=== PATIENT | female | born 1975 | race Caucasian/White ===

== ENCOUNTER 2018-09-22 15:30 | Emergency (ER) | payer MEDICAID ==
[~2018-09-22] VITALS: Ht 142.2 cm; Wt 54.6 kg
[~2018-09-22 15:30] MED LIST: ALD250 GTB; PREN1TAB17 PO
[2018-09-22 15:38] VITALS: Ht 142.2 cm; Wt 54.6 kg
[2018-09-22] MEDS ORDERED: BELLADONNA/PHENOBARBITAL TAB PO STA (19:48)
[2018-09-22] MEDS ORDERED: SOD CHLORIDE 0.9% 500 ML IV STA (19:48)
[2018-09-22] MEDS ORDERED: LIDOCAINE/MYLANTA 40 ML BTL PO STA (19:48)
[2018-09-22] MEDS ORDERED: ONDANSETRON 4 MG INJ IV STA ×2 (19:48→21:08)
[2018-09-22] MEDS ORDERED: NICARDipine HCL 30 MG CAPSULE PO ONE (20:00)
--- NOTE | 2018-09-22 20:06 | ERD ---
ER Documentation Chief Complaint Chief Complaint chest pain, increase bp; headache HPI This is a 43-year-old woman triaged as having "chest pain" although she points to epigastrium when describing the pain states it is burning nonradiating and nonexertional. She complains of a headache and elevated blood pressure as well. She denies fevers or chills, no blood per rectum or melena, no chest pain or shortness of breath, no slurred speech, no weakness in her arms or legs. ROS All systems reviewed and are negative except as per history of present illness. Medications Home Meds Active Scripts Ondansetron Hcl* (Zofran*) 4 Mg Tablet, 4 MG PO Q8H PRN for NAUSEA AND/OR VOMITING, #30 TAB Prov:CALI MICHELLE MD 09/22/18 Mag Hydrox/Al Hydrox/Simeth (Maalox Advanced Suspension) 355 Ml Oral.susp, 2 TSP PO TID PRN for PAIN, #16 OZ Prov:CALI MICHELLE MD 09/22/18 Famotidine* (Pepcid*) 20 Mg Tablet, 20 MG PO BID, #28 TAB Prov:CALI MICHELLE MD 09/22/18 Reported Medications Methyldopa* (Aldomet*) 250 Mg Tab, 250 MG GTB TID 10/01/12 Vit-Iron Fumarate-FA ( Tablet) 1 Each Tablet, 1 EACH PO DAILY 10/01/12 Allergies Allergies: Coded Allergies: No Known Allergies (Verified Allergy, 10/01/12) PMhx/Soc Hx Cardiac Disorders: Yes (htn) Hx Miscellaneous Medical Probl: Yes (anemia) Hx Alcohol Use: No Hx Substance Use: No Hx Tobacco Use: No Smoking Status: Never smoker FmHx Family History: No diabetes Physical Exam Vitals Vital Signs Date Temp Pulse Resp B/P (MAP) Pulse Ox O2 O2 Flow FiO2 Time Delivery Rate 09/22/18 98.0 102 17 149/89 100 Room Air 22:34 (109) 09/22/18 106 19 137/88 100 Room Air 22:01 (104) 09/22/18 111 18 128/71 100 Room Air 21:20 (90) 09/22/18 110 20 128/71 100 Room Air 21:00 (90) 09/22/18 102 21 173/87 100 Room Air 20:47 (115) 09/22/18 81 18 196/91 100 Room Air 20:08 (126) 09/22/18 202/95 17:29 (130) 09/22/18 98.3 105 24 193/88 100 15:38 (123) Physical Exam GENERAL: Well-developed, well-nourished, well-hydrated, appears anxious, afebrile HEENT: Moist mucous membranes, pink conjunctiva, no cervical spine tenderness or step-off deformities, no goiter, no jaundice or icterus, extraocular movements intact without pain. No submandibular induration, and no pharyngeal erythema NEURO: Alert and oriented 3, cranial nerves II through XII intact bilaterally, pupils equal round reactive to light, no focal deficits or facial asymmetry, sensation intact distally Strength 5/5 in upper and lower extremities bilaterally CARDIAC: Tachycardic and regular, no murmurs rubs or gallops LUNGS: Clear bilaterally no wheezing crackles or stridor ABDOMEN: Soft nontender, no guarding, no rigidity, no rebound, no psoas sign no obturator sign. Normoactive bowel sounds SKIN: Warm and dry to touch, no abrasions, contusions, or hematomas, no lacerations, no ecchymosis, no target lesions, and without ulcers EXTREMITIES: No clubbing cyanosis or edema, calves are bilaterally symmetrical, no Homans sign, no popliteal cord sign. Distal pulses equal and bilateral PSYCH: Anxious Result Diagram: 09/22/18200309/22/182003 Results 24 hrs Laboratory Tests Test 09/22/18 20:04 09/22/18 21:06 White Blood Count 8.8 10^3/ul Red Blood Count 4.45 10^6/ul Hemoglobin 9.4 g/dl Hematocrit 31.3 % Mean Corpuscular Volume 70.3 fl Mean Corpuscular Hemoglobin 21.1 pg Mean Corpuscular Hemoglobin Concent 30.0 g/dl Red Cell Distribution Width 17.8 % Platelet Count 349 10^3/UL Mean Platelet Volume 9.4 fl Immature Granulocytes % 0.600 % Neutrophils % 75.4 % Lymphocytes % 18.9 % Monocytes % 4.1 % Eosinophils % 0.1 % Basophils % 0.9 % Nucleated Red Blood Cells % 0.0 /100WBC Immature Granulocytes # 0.050 10^3/ul Neutrophils # 6.6 10^3/ul Lymphocytes # 1.7 10^3/ul Monocytes # 0.4 10^3/ul Eosinophils # 0.0 10^3/ul Basophils # 0.1 10^3/ul Nucleated Red Blood Cells # 0.0 10^3/ul Urine Color STRAW Urine Clarity CLEAR Urine pH 7.0 Urine Specific [place] 1.005 Urine Ketones NEGATIVE mg/dL Urine Nitrite NEGATIVE mg/dL Urine Bilirubin NEGATIVE mg/dL Urine Urobilinogen NEGATIVE mg/dL Urine Leukocyte Esterase NEGATIVE Stef/ul Urine Hemoglobin NEGATIVE mg/dL Urine Glucose NEGATIVE mg/dL Urine Total Protein NEGATIVE mg/dl Sodium Level 141 mmol/L Potassium Level 3.8 mmol/L Chloride Level 107 mmol/L Carbon Dioxide Level 25 mmol/L Anion Gap 9 Blood Urea Nitrogen 10 mg/dl Creatinine 0.44 mg/dl Est Glomerular Filtrat Rate mL/min > 60 mL/min Glucose Level 125 mg/dl Calcium Level 9.4 mg/dl Total Bilirubin 0.4 mg/dl Direct Bilirubin 0.00 mg/dl Indirect Bilirubin 0.4 mg/dl Aspartate Amino Transf (AST/SGOT) 23 IU/L Alanine Aminotransferase (ALT/SGPT) 32 IU/L Alkaline Phosphatase 109 IU/L Troponin I < 0.012 ng/ml Total Protein 7.8 g/dl Albumin 4.7 g/dl Globulin 3.10 g/dl Albumin/Globulin Ratio 1.51 Lipase 112 U/L Bedside Urine pH (LAB) 7.0 Bedside Urine Protein (LAB) Negative Bedside Urine Glucose (UA) Negative Bedside Urine Ketones (LAB) Negative Bedside Urine Blood Trace-lysed Bedside Urine Nitrite (LAB) Negative Bedside Urine Leukocyte Esterase (L Negative Current Medications Medications Dose Sig/Jose Start Time Status Last (Trade) Ordered Route PRN Stop Time Admin Dose Reason Admin Nicardipine 30 mg ONCE ONCE 09/22/18 DC 09/22/18 HCl PO 20:00 09/22/18 20:14 (Cardene) 20:01 Sodium 500 ml @ Q1H STAT 09/22/18 DC 09/22/18 Chloride 500 mls/hr IV 19:48 09/22/18 20:13 20:47 Ondansetron 4 mg ONCE STAT 09/22/18 DC 09/22/18 HCl (Zofran IV 19:48 09/22/18 20:14 Inj) 19:49 40 ml ONCE STAT 09/22/18 DC 09/22/18 Miscellaneous PO 19:48 09/22/18 20:14 Medication 19:49 (Gi Cocktail (2)) Belladonna/ 2 tab ONCE STAT 09/22/18 DC 09/22/18 Phenobarbital PO 19:48 09/22/18 20:13 () 19:49 Sodium 1,000 ml @ Q1H STAT 09/22/18 DC 09/22/18 Chloride 1,000 mls/hr IV 21:08 09/22/18 21:31 22:07 Lorazepam 0.5 mg ONCE ONCE 09/22/18 DC 09/22/18 (Ativan) PO 21:30 09/22/18 21:31 21:31 Ondansetron 4 mg ONCE STAT 09/22/18 DC 09/22/18 HCl (Zofran IV 21:08 09/22/18 21:30 Inj) 21:09 [facility] IV line was established patient was placed on equipment monitor phototypesetting rhythm strip revealed a sinus rhythm at about 80 bpm with upright P and T waves. Patient was afebrile EKG performed, read by me: 92 bpm, normal sinus rhythm, normal axis, no acute ST segment changes, narrow QRS complex, with good R-wave progression in precordial leads. I administered 500 cc normal saline IV, Zofran 4 mg IV, GI cocktail p.o., nicardipine 30 mg p.o. for hypertension Patient later became tachycardic I suspect due to some anxiety and continued nausea so I administered lorazepam 0.5 mg p.o. x1 and another dose of Zofran 4 mg IV. Patient also received another liter normal saline IV. CBC and electrolytes are normal, liver function tests were normal, troponin was negative, urinalysis was negative for infection. Patient's tachycardia completely resolved and she was asymptomatic after above therapy, her abdominal exam was repeated and remains benign and she has no more complaints of abdominal pain. Differential diagnoses considered, included but not limited to acute coronary syndrome, pulmonary embolism, aortic dissection, abdominal aortic aneurysm, sepsis, stroke, meningitis, encephalitis, pneumonia, appendicitis, cholecystitis, bowel obstruction, pyelonephritis, nephrolithiasis, cystitis, as well as metabolic, hematologic, and electrolyte abnormalities. As well as abscess, cellulitis, fractures, and dislocations. Patient feels much better at this time, and vital signs are normal, symptoms have improved. I did give strict instructions to return to the ED if symptoms continue or worsen, patient will otherwise follow-up with primary care physician. Patient understood instructions and agreed to plan. Disclaimer: Inadvertent spelling and grammatical errors are likely due to EHR/dictation software use and do not reflect on the overall quality of patient care. Also, please note that the electronic time recorded on this note does not necessarily reflect the actual time of the patient encounter. Departure Diagnosis: Primary Impression: Hypertension Hypertension type: essential hypertension Qualified Codes: I10 - Essential (primary) hypertension Additional Impressions: Abdominal pain Abdominal location: epigastric Qualified Codes: R10.13 - Epigastric pain Headache Headache type: tension-type Headache chronicity pattern: acute headache Intractability: not intractable Qualified Codes: G44.209 - Tension-type headache, unspecified, not intractable Nausea Condition: CALI Costa MD Sep 22, 2018 20:06
[2018-09-22] MEDS ORDERED: FAMO-96 PO (21:02)
[2018-09-22] MEDS ORDERED: MAG355OR14 PO (21:02)
[2018-09-22] MEDS ORDERED: ONDA4TAB8 PO (21:02)
[2018-09-22] MEDS ORDERED: SOD CHLORIDE 0.9% 1,000 ML IV STA (21:08)
[2018-09-22] MEDS ORDERED: LORAZEPAM 0.5 MG TAB PO ONE (21:30)
[2018-09-22 22:34] VITALS: BP 149/89; RESP 17
== END 2018-09-22 23:00 | disposition home or self-care (01) ==
LOC: E/R 15:30
DX: I10 Essential (primary) hypertension (principal); R10.13 Epigastric pain; G44.209 Tension-type headache, unspecified, not intractable; R11.0 Nausea; R40.2142 Coma scale, eyes open, spontaneous, at arrival to emergency department; R40.2362 Coma scale, best motor response, obeys commands, at arrival to emergency department; R40.2252 Coma scale, best verbal response, oriented, at arrival to emergency department
CPT/HCPCS: 36415; 71045; 80053; 81003; 83690; 84484; 85025; 93005; 96374; 96376; J2405; J7030; J7040; Z7502; Z7610